=== PATIENT | female | born 1995 | race Caucasian/White ===

== ENCOUNTER 2017-02-26 22:31 | Emergency (ER) | payer OTHER ==
[~2017-02-26] VITALS: Ht 154.9 cm; Wt 60.2 kg
[~2017-02-26 22:31] MED LIST: OXCA600T3 PO
[2017-02-26 22:33] VITALS: BP 135/74
[2017-02-26 23:11] LABS: PATH.CAST-FLAG NOT PRESENT; SPERM-FLAG NOT PRESENT; SRC-FLAG NOT PRESENT; XTAL-FLAG NOT PRESENT; YLC-FLAG NOT PRESENT
[2017-02-26] MEDS ORDERED: OXYcodone/APAP 5/325MG TABLET PO ONE (23:30)
[2017-02-26] MEDS ORDERED: ONDANSETRON ODT 4 MG PO ONE (23:30)
[2017-02-26] MEDS ORDERED: OXYcodone/APAP 5/325MG TABLET ONE (23:34)
[2017-02-26] MEDS ORDERED: ONDANSETRON ODT 4 MG ONE (23:34)
[2017-02-26 23:37] LABS: HCG UR OBC PASS
== END 2017-02-27 01:21 | disposition home or self-care (01) ==
LOC: ED 23:59
DX: N83.201 Unspecified ovarian cyst, right side (principal); N30.00 Acute cystitis without hematuria; J45.909 Unspecified asthma, uncomplicated
CPT/HCPCS: 76830; 81001; 81025; 87077; 87086; 99285; Q0162

== ENCOUNTER 2017-03-13 17:31 | Emergency (ER) | payer OTHER ==
[~2017-03-13] VITALS: Ht 154.9 cm; Wt 60.5 kg
[2017-03-13] MEDS ORDERED: KETOROLAC 30 MG/1 ML IM ONE (18:00)
[2017-03-13 18:10] LABS: HEMATOCRIT 41.2 % (34.6-47.8); HEMOGLOBIN 13.9 g/dL (11.7-16.4); WHITE BLOOD COUNT 6.2 x10^3/uL (4.5-13.2)
[2017-03-13 18:24] LABS: ASPARTATE AMINO TRANSFERASE 19 U/L (15-37); BLOOD UREA NITROGEN 19 mg/dL (7-18)
[2017-03-13 20:58] VITALS: BP 102/68
== END 2017-03-13 21:10 | disposition home or self-care (01) ==
LOC: ED 21:00
DX: R30.0 Dysuria (principal); M54.5 Low back pain; E11.9 Type 2 diabetes mellitus without complications
CPT/HCPCS: 36415; 76770; 80053; 81003; 84703; 85025; 99285

== ENCOUNTER 2017-03-21 13:14 | Emergency (ER) | payer OTHER ==
[~2017-03-21] VITALS: Ht 154.9 cm; Wt 59.2 kg
[2017-03-21 13:17] VITALS: BP 126/82
[2017-03-21] MEDS ORDERED: FAMOTIDINE 20 MG TABLET PO ONE (13:30)
[2017-03-21] MEDS ORDERED: FAMOTIDINE 20 MG TABLET ONE (13:42)
== END 2017-03-21 15:03 | disposition home or self-care (01) ==
LOC: ED 14:40
DX: T78.3XXA Angioneurotic edema, initial encounter (principal); E11.9 Type 2 diabetes mellitus without complications; J45.909 Unspecified asthma, uncomplicated; X58.XXXA Exposure to other specified factors, initial encounter; Y93.89 Activity, other specified; Y92.89 Other specified places as the place of occurrence of the external cause; Y99.8 Other external cause status
CPT/HCPCS: 99283; J7512